=== PATIENT | female | born 1980 | race Caucasian/White ===

== ENCOUNTER 2017-10-28 12:29 | Emergency (ER) | payer BC ==
[2017-10-28 14:32] VITALS: BP 156/60
--- NOTE | 2017-10-28 14:50 | UC ---
Throat Pain/Nasal Zaid HPI - HPI Summary HPI Summary: sore throat today, daughter treated for strep. - History of Current Complaint Chief Complaint: UCGeneralIllness Stated Complaint: SORE THROAT Time Seen by Provider: 10/28/17 14:47 Hx Obtained From: Patient Hx Last Menstrual Period: 10/04/17 ?: No Onset/Duration: Sudden Onset, Lasting Days Severity: Moderate Pain Intensity: 0 Associated Signs & Symptoms: Positive: Dysphagia - Allergies/Home Medications Allergies/Adverse Reactions: Allergies Allergy/AdvReac Type Severity Reaction Status Date / Time No Known Allergies Allergy Verified 10/28/17 14:32 PMH/Surg Hx/FS Hx/Imm Hx Previously Healthy: Yes - Surgical History Surgical History: Yes Surgery Procedure, Year, and Place: breast fibriod removed - Family History Known Family History: Negative: Cardiac Disease, Hypertension - Social History Alcohol Use: Occasionally Substance Use Type: None Smoking Status (MU): Never Smoked Tobacco Review of Systems Constitutional: Negative Skin: Negative Eyes: Negative ENT: Sore Throat, Ear Ache Respiratory: Cough Cardiovascular: Negative Gastrointestinal: Negative Genitourinary: Negative Motor: Negative Neurovascular: Negative Musculoskeletal: Negative Neurological: Negative Psychological: Negative Is Patient Immunocompromised?: No All Other Systems Reviewed And Are Negative: Yes Physical Exam Triage Information Reviewed: Yes Appearance: Well-Appearing, Well-Nourished, Pain Distress Vital Signs: Initial Vital Signs Temp 98.8 F 10/28/17 14:27 Pulse 101 10/28/17 14:27 Resp 18 10/28/17 14:27 BP 156/60 10/28/17 14:27 Pulse Ox 99 10/28/17 14:27 Vital Signs Reviewed: Yes Eye Exam: Normal ENT Exam: Normal ENT: Positive: Pharyngeal erythema Dental Exam: Normal Neck exam: Normal Neck: Positive: Supple, Nontender, No Lymphadenopathy Respiratory Exam: Normal Respiratory: Positive: Chest non-tender, Lungs clear, Normal breath sounds Cardiovascular Exam: Normal Cardiovascular: Positive: No Murmur, Pulses Normal, Tachycardia Abdominal Exam: Normal Abdomen Description: Positive: Nontender, No Organomegaly, Soft Bowel Sounds: Positive: Present Musculoskeletal Exam: Normal Musculoskeletal: Positive: Strength Intact, ROM Intact, No Edema Neurological Exam: Normal Neurological: Positive: Alert, Muscle Tone Normal Psychological Exam: Normal Skin Exam: Normal Throat Pain/Nasal Course/Dx - Course Course Of Treatment: hx obtained, exam performed ,meds reviewed, rapid strep obtained, treated - Differential Dx/Diagnosis Differential Diagnosis/HQI/PQRI: Otitis Media, Pharyngitis, Sinusitis, URI Provider Diagnoses: pharyngitis. ear pain. tachycardia Discharge - Discharge Plan Condition: Stable Disposition: HOME Prescriptions: Amoxicillin PO (*) [Amoxicillin 875 MG (*)] 875 mg PO BID #20 tab Patient Education Materials: Strep Throat (ED) Referrals: No Primary Care Phys,NOPCP [Primary Care Provider] - Additional Instructions: 1. Take the medication as prescribed. 2. Get plenty of rest and follow up as needed. 3 your strep was negative, due to the exposure, I am sending a script, start if symtpoms progress.
== END 2017-10-28 15:09 | disposition home or self-care (01) ==
LOC: UCCORT 12:29
DX: J02.9 Acute pharyngitis, unspecified (principal); H92.09 Otalgia, unspecified ear; R00.0 Tachycardia, unspecified
CPT/HCPCS: 87651; 99212; G0463

== ENCOUNTER 2019-01-21 09:55 | Emergency (ER) | payer BC ==
--- NOTE | 2019-01-21 11:54 | ED ---
Abdominal Pain/Female - HPI Summary HPI Summary: A 38 y/o female presents to [facility] with a chief complaint of abdominal pain for 3 hours [employer]. Upon arrival the patient denies abdominal pain. She reports that she woke up with a severe pressure pain across her abdomen which gradually localized to her RLQ. She denies vomiting, CP, fever or hematuria but reports nausea and diarrhea. She denies a Hx of kidney stones and reports that she still has her appendix. - History of Current Complaint Chief Complaint: EDAbdPain Stated Complaint: ABD PAIN PER PT Time Seen by Provider: 01/21/19 11:38 Hx Obtained From: Patient Hx Last Menstrual Period: 10/04/17 Onset/Duration: Sudden Onset, Lasting Hours, Resolved Timing: Intermittent Episode Lasting - 1 episode 3 hours Severity Initially: Severe Severity Currently: Mild Pain Intensity: 1 Pain Scale Used: 0-10 Numeric Location: Discrete At: RLQ Radiates: No Character: Other: - pressure Aggravating Factor(s): Nothing Alleviating Factor(s): Nothing Associated Signs and Symptoms: Positive: Nausea, Diarrhea. Negative: Fever, Chest Pain, Urinary Symptoms, Vomiting Allergies/Adverse Reactions: Allergies Allergy/AdvReac Type Severity Reaction Status Date / Time No Known Allergies Allergy Verified 01/21/19 11:45 Home Medications: Home Medications NK [No Home Medications Reported] 01/21/19 [History Confirmed 01/21/19] PMH/Surg Hx/FS Hx/Imm Hx Endocrine/Hematology History: Denies: Hx Diabetes Cardiovascular History: Denies: Hx Hypertension - Surgical History Surgery Procedure, Year, and Place: breast fibriod removed Infectious Disease History: No Infectious Disease History: Denies: Traveled Outside the [place] in Last 30 Days - Family History Known Family History: Negative: Cardiac Disease, Hypertension - Social History Alcohol Use: Occasionally Substance Use Type: Reports: None Smoking Status (MU): Never Smoked Tobacco Review of Systems Negative: Fever Negative: Chest Pain Positive: Abdominal Pain, Diarrhea, Nausea. Negative: Vomiting Negative: hematuria All Other Systems Reviewed And Are Negative: Yes Physical Exam - Summary Physical Exam Summary: Appearance: Well appearing, no pain distress Skin: warm, dry, reflects adequate perfusion Head/face: normal Eyes: EOMI, KAUR ENT: normal Neck: supple, non-tender Respiratory: CTA, breath sounds present Cardiovascular: RRR, pulses symmetrical Abdomen: Tenderness RLQ, soft Musculoskeletal: normal, strength/ROM intact Neuro: normal, sensory motor intact, A&Ox3 Triage Information Reviewed: Yes Vital Signs On Initial Exam: Initial Vitals Temp Pulse Resp BP Pulse Ox 97.8 F 82 16 165/88 98 01/21/19 09:57 01/21/19 09:57 01/21/19 09:57 01/21/19 09:57 01/21/19 09:57 Vital Signs Reviewed: Yes Diagnostics - Vital Signs Vital Signs Temp Pulse Resp BP Pulse Ox 01/21/19 09:57 97.8 F 82 16 165/88 98 - Laboratory Result Diagrams: 01/21/19 12:04 01/21/19 12:03 Lab Statement: Any lab studies that have been ordered have been reviewed, and results considered in the medical decision making process. - CT abdomen/pelvis CT Interpretation Completed By: Radiologist Summary of CT Findings: NORMAL APPENDIX. NO ACUTE CT PATHOLOGY OF THE VISUALIZED ABDOMEN OR PELVIS. ED physician has reviewed this imaging report. Re-Evaluation - Re-Evaluation First Eval Re-Evaluation Time: 15:59 Change: Unchanged Comment: Discussed results and plan for DC. Abdominal Pain Fem Course/Dx - Course Course Of Treatment: A 38 y/o female presents to [facility] with a chief complaint of abdominal pain for 3 hours [employer]. The physical exam revealed tenderness RLQ. Abdomen/pelvis CT impression: NORMAL APPENDIX. NO ACUTE CT PATHOLOGY OF THE VISUALIZED ABDOMEN OR PELVIS. Bloodwork, chemistries and urines obtained. The patient was given Iohexol and Sodium Chloride IV. - Diagnoses Differential Diagnosis: Positive: Appendicitis, Diverticulitis, Pancreatitis, Renal Colic Provider Diagnoses: Abdominal pain Discharge - Sign-Out/Discharge Documenting (check all that apply): Patient Departure - DC Patient Received Moderate/Deep Sedation with Procedure: No - Discharge Plan Condition: Stable Disposition: HOME Patient Education Materials: Abdominal Pain (ED) Referrals: Brenda Vargas NP [Primary Care Provider] - 3 Days Additional Instructions: Return to the ED if you experience any new or worsening symptoms. - Billing Disposition and Condition Condition: STABLE Disposition: Home - Attestation Statements Document Initiated by Scribe: Yes Documenting Scribe: Ayaan Lim Provider For Whom Scribe is Documenting (Include Credential): Sabino Campbell MD Scribe Attestation: Ayaan Beard, scribed for Sabino Campbell MD on 01/21/19 at 1621. Scribe Documentation Reviewed: Yes Provider Attestation: The documentation as recorded by the scribe, Ayaan Lim accurately reflects the service I personally performed and the decisions made by me, Sabino Campbell MD Status of Scribe Document: Viewed
[2019-01-21] MEDS ORDERED: NS 0.9% 1000 ML** 1,000 ML IV SCH (12:00)
[2019-01-21 12:21] LABS: ABS Basophils 0 10^3/ul (0-0.2); ABS Eosinophils 0 10^3/ul (0-0.6); ABS Lymphocytes 0.7 10^3/ul (1.0-4.8); ABS Monocytes 0.3 10^3/ul (0-0.8); ABS Nucleated RBC 0 10^3/ul; Eosinophil % 0.4 %; Hematocrit 38 % (33-41); Hemoglobin 12.5 g/dL (12.0-16.0); Lymphocyte % 16.4 %; Mean Corpuscular HGB Conc 33 g/dL (31-36); Mean Corpuscular Hemoglobin 28 pg (27-31); Mean Corpuscular Volume 85 fL (80-97); Mean Platelet Volume 7.6 fL (7.4-10.4); Nucleated Red Blood Cells % 0; Platelet Count 181 10^3/uL (150-450); Red Blood Count 4.44 10^6 /uL (3.70-4.87); Red Cell Distribution Width 15 % (10.5-15); White Blood Count 4.1 10^3/uL (3.5-10.8)
[2019-01-21 12:33] LABS: Activated Partial Thrombo Time 32.8 seconds (26.0-36.3); INR 1.06 (0.82-1.09)
[2019-01-21 12:39] LABS: ALT 16 U/L (7-52); AST 14 U/L (13-39); Albumin 4.3 g/dL (3.2-5.2); Alkaline Phosphatase 71 U/L (34-104); Anion Gap 4 mmol/L (2-11); BUN/Creatinine Ratio 19.4 (8-20); Blood Urea Nitrogen 14 mg/dL (6-24); C Reactive Protein < 1.00 mg/L (<8.01); CO2 Carbon Dioxide 28 mmol/L (22-32); Calcium 9.8 mg/dL (8.6-10.3); Chloride 106 mmol/L (101-111); EGFR African American 110.3 (>60); EGFR Non-African American 91.1 (>60); Globulin 2.2 g/dL (2-4); Glucose 97 mg/dL (70-100); Potassium 4.1 mmol/L (3.5-5.0); Sodium 138 mmol/L (135-145); Total Protein 6.5 g/dL (6.4-8.9)
[2019-01-21 12:44] LABS: HCG Pregnancy < 0.60 mIU/mL
[2019-01-21] MEDS ORDERED: Iohexol 300* (CONTRAST) 10 ML SDV IV ONE (13:05)
[2019-01-21 13:52] LABS: Urine Appearance Clear; Urine Bilirubin Negative (Negative); Urine Blood Negative (Negative); Urine Color Straw; Urine Glucose Negative (Negative); Urine Ketones Negative (Negative); Urine Nitrite Negative (Negative); Urine Protein Negative (Negative); Urine Specific Gravity 1.006 (1.010-1.030); Urine Urobilinogen Negative (Negative)
[2019-01-21 16:35] VITALS: BP 122/75
== END 2019-01-21 16:34 | disposition home or self-care (01) ==
LOC: ED 09:55
DX: R10.9 Unspecified abdominal pain (principal)
CPT/HCPCS: 36415; 74177; 80053; 81003; 83605; 83690; 84484; 84702; 85025; 85610; 85730; 86140; 96360; 96361; 99282; Q9967